=== PATIENT | male | born 1950 | race Hispanic/Latino ===

== ENCOUNTER 2020-01-21 13:23 | Inpatient (IN) | payer OTHER ==
[2020-01-21] MEDS ORDERED: Ringers Lactate 1,000 ML IV ONE (14:13)
[2020-01-21] MEDS ORDERED: SUCCINYLCHOLINE 20 MG/ML (10 ML) IV ONE (14:18)
[2020-01-21] MEDS ORDERED: MIDAZOLAM HCL 2 MG/2 ML INJ ONE (14:19)
[2020-01-21] MEDS ORDERED: propofoL 200 MG/20 ML VIAL IV ONE (14:20)
[2020-01-21] MEDS ORDERED: ROCURONIUM 50 MG/5 ML VIAL IV ONE (14:20)
[2020-01-21] MEDS ORDERED: FENTANYL CITR 100 MCG/2 ML ONE ×2 (14:20→14:59)
[2020-01-21] MEDS ORDERED: CEFOXITIN/SWI 1gm 1 GM/10 ML SYR ONE (14:20)
[2020-01-21] MEDS ORDERED: LIDOCAINE 1% MPF 5 ML VIAL ONE (14:20)
[2020-01-21] MEDS ORDERED: ONDANSETRON 4 MG/2 ML VIAL ONE (14:52)
[2020-01-21] MEDS ORDERED: KETOROLAC 30 MG/ML INJ ONE (14:52)
[2020-01-21] MEDS ORDERED: dexAMETHasone 10 MG/ML VIAL ONE (14:52)
[2020-01-21] MEDS ORDERED: NEOSTIGMINE 1 MG/ML -5 ML ONE (15:20)
[2020-01-21] MEDS ORDERED: GLYCOPYRROLATE 0.2 MG/ML SYR ONE ×2 (15:20)
--- NOTE | 2020-01-21 15:32 | P.OP ---
Automotive Product Engineer: Marco Antonio JAVIER Preoperative diagnosis: Acute Perforated Appendicitis Postoperative diagnosis: same Primary procedure: Lap Appy Anesthesia: General Estimated blood loss: min Specimen: Appy Findings: as above Complications: None Drain(s): BRENNAN drain Transferred to: Recovery Room Condition: Good
[2020-01-21] MEDS ORDERED: HYDROMORPHONE HCL 1 MG/ML INJ IV PRN (15:34)
[2020-01-21] MEDS ORDERED: ALBUTEROL 2.5 MG/3 ML NEB SOL ONE (15:37)
[2020-01-21] MEDS ORDERED: EPINEPHRINE INH 0.5 ML VIAL IH ONE (15:38)
[2020-01-21] MEDS: D5 0.45 NS 1,000 ML IV SCH (16:26)
[2020-01-21] MEDS: METRONIDAZOLE 500mg IVPB 500 MG/100 ML BAG IV SCH (16:27)
[2020-01-21 17:00] VITALS: BMI 26.6
[2020-01-21] MEDS: CEFOXITIN/SWI 1gm 1 GM/10 ML SYR IVP SCH (17:06)
[2020-01-21] MEDS ORDERED: CEFOXITIN SODIUM 1 GM/VIAL IVPB SCH (18:00)
--- NOTE | 2020-01-21 18:34 | PREOPCON ---
Date of Consultation: 01/21/2020 Chief Complaint: Abdominal pain. History Of Present Illness: The patient is a 69-year-old gentleman, who Saturday night started havin g some right-sided back pain going to the right lower quadrant and then to the lower pelvis region. He had been working on his muscular pain; however, his abdomen became distended and he became more an orexic, pain continued. He had no nausea, vomiting. No diarrhea. No constipation. No blood in his stools. Mild dysuria. No hematuria. No sore throat, runny nose, cough, headaches, or dizziness. No chest pain. He did have initially some subjective temperature, but is afebrile currently. He was seen in the office emergency room and I was contacted as the knows me from previous encounters for admission. The workup revealed a perforated appendicitis. Review of Systems: Otherwise unremarkable. Past Medical History: Kidney stones. Past Surgical History: Kidney stone surgery. Allergies: NO ALLERGIES. Social History: Denies smoking. Drinks occasionally. Family History: Negative for diabetes. Physical Examination: Vital Signs: Stable, currently afebrile. General: Awake, alert, oriented x3. Head and Neck: Cranial nerves 2 through 12 are grossly within normal limits. No neck masses. No JV D. Throat clear. Neck is supple. Chest: Clear. Heart: S1, S2. Abdomen: Soft, distended, hypoactive bowel sounds. Positive Rovsing sign. Positive right lower halima drant tenderness with rebound, rigidity, and guarding. Extremities: Adequately perfused. Nontender. Neuro: Nonfocal. Laboratory Data: CT scan and laboratory data reviewed. Essentially, the patient has leukocytosis wi th acute perforated appendicitis. Assessment: Acute perforated appendicitis. Plan: Admit, n.p.o., IV fluid, IV antibiotic, to the OR for laparoscopic appendectomy, possible open . The patient understands the risks, benefits, and alternatives and agrees to procedure. /MODL Voice ID: [id number] Report ID: [id number]
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
[2020-01-21] MEDS ORDERED: MELATONIN 5 MG TABLET PO ONE (21:01)
[2020-01-21] MEDS: HYDROCODONE/APAP 7.5/325 MG TAB PO PRN (21:59)
[2020-01-22] MEDS: CEFOXITIN/SWI 1gm 1 GM/10 ML SYR IVP SCH ×4 (00:12→17:15)
[2020-01-22] MEDS: METRONIDAZOLE 500mg IVPB 500 MG/100 ML BAG IV SCH ×3 (00:12→17:16)
--- NOTE | 2020-01-22 02:23 | OP ---
Date of Procedure: 01/21/2020 Surgeon: Cuba Perkins MD Emergency Veterinary Technician: YAYA iPerce. Preoperative Diagnosis: Acute perforated appendicitis. Postoperative Diagnosis: Acute perforated appendicitis. Procedure: Laparoscopic appendectomy. Estimated Blood Loss: Minimal. Specimen: Appendix. Findings: As above. Anesthesia: General. Complications: None. Drains: BRENNAN #10 flat. Disposition: The patient tolerated procedure in stable condition, taken to Recovery in good general condition. Procedure In Detail: The patient was brought to the OR and placed in supine position. General anest hesia was begun. The patient was prepped and draped in usual sterile fashion. Marcaine 0.5% was inf iltrated locally. A 15 blade was used to make a 1 cm supraumbilical midline incision. Subcutaneous tissue was divided. Fascia was identified and divided. A #1 Vicryl stay suture was placed. Periton eal cavity was entered with blunt dissection. A 12 mm trocar was placed into the peritoneal cavity u nder direct vision. Pneumoperitoneum was established. Then, two 5 mm trocars were placed, one in th e suprapubic region, one in the left lower quadrant. Laparoscopy revealed medial to the cecum and po steroinferior a necrotic appendix with pus, obvious perforations, very hard to define the mesoappendi x, but base of the appendix on the cecum was identified and then Endo-ROSE stapling device was utilize d to divide that. All the purulence was evacuated and irrigated thoroughly with saline and then the appendix was retrieved through the umbilicus via an EndoCatch bag. The right lower quadrant was exam ined again and there was a cavity where the appendix was and where the pus was. So, I opted to place a drain BRENNAN #10 flat into that area. The pelvis was cleaned. The right pericolic gutter was cleaned and then 3-0 nylon was used to secure the drain to the abdominal wall and then no evidence of bleedi ng or bowel injury was appreciated and all trocars were removed under direct vision. Stay sutures we re tied to each other across the fascial defect. Subcutaneous wounds were irrigated. Bleeding was c ontrolled with cautery. 3-0 chromic was used to approximate the subcutaneous tissue and demetri used to close the skin. Sterile dressing was applied. The patient was awakened and taken to Recovery in good general condition. /MODL Voice ID: [id number] Report ID: [id number]
[2020-01-22 04:00] LABS: Absolute Lymphocytes (CBC) 0.9 K/uL (0.7-4.9); Basophils % 0.1 % (0-1.3); Hematocrit 35.6 % (39.6-49.0); Lymphocytes % 7.9 % (15.3-44.8); MPV 8.5 fL (7.6-11.3); RBC Red Blood Cell Count 3.91 M/uL (4.33-5.43)
[2020-01-22 04:33] LABS: Magnesium 2.4 mg/dL (1.8-2.4); Phosphorus 2.9 mg/dL (2.5-4.9); Potassium 4.6 mmol/L (3.5-5.1)
[2020-01-22] MEDS: D5 0.45 NS 1,000 ML IV SCH ×2 (05:49→09:02)
[2020-01-22] MEDS: PANTOPRAZOLE 40MG TABLET PO SCH (05:49)
[2020-01-22 07:07] LABS: Thyroid Stimulating Hormone 0.625 uIU/mL (0.360-3.740)
[2020-01-22] MEDS: HYDROCODONE/APAP 7.5/325 MG TAB PO PRN (10:29)
[2020-01-22] MEDS: ONDANSETRON 4 MG/2 ML VIAL IV PRN ×2 (10:30→21:17)
--- NOTE | 2020-01-22 11:24 | P.PN ---
Subjective Date of Service: 01/22/20 Chief Complaint: Perforated appendicitis Subjective: Improving, Doing well Physical Examination - Vital Signs Temperature: 98.1 F Blood Pressure: 119/62 Pulse: 78 Respirations: 17 Pulse Ox (%): 97 - Physical Exam General: Alert, In no apparent distress, Oriented x3, Cooperative HEENT: Atraumatic Neck: Supple Respiratory: Clear to auscultation bilaterally, Normal air movement Cardiovascular: Normal pulses, Regular rate/rhythm Gastrointestinal: Other (Postop changes noted. Pain improved.) Neurological: Normal speech, Normal strength at 5/5 x4 extr, Normal tone, Normal affect - Studies Laboratory Data (last 24 hrs) 01/22/20 03:23: Sodium 134 L, Potassium 4.6, BUN 14, Creatinine 0.95, Glucose 192 H, Phosphorus 2.9, Magnesium 2.4 01/22/20 03:23: WBC 11.6 H, Hgb 12.4 L, Hct 35.6 L, Plt Count 230 Medications List Reviewed: Yes Assessment & Plan Discharge Plan: Home Plan to discharge in: 24 Hours Physician Review Additional Text: Assessment Perforated appendicitis status post laparoscopic appendectomy GERD Hyperglycemia secondary to pre diabetes Plan Perforated appendicitis status post laparoscopic appendectomy: Continue with surgery recommendations. Surgery to evaluate patient and advance diet. Encourage incentive spirometer. Encourage ambulation. Possible discharge in the next 24-48 hr. Will discuss further with surgery. GERD: Continue medication Hyperglycemia secondary to pre diabetes: A1c 6.1. Will teach about pre diabetes. Recommend recheck A1c in 3 months. Time Spent Managing Pts Care (In Minutes): 55
--- NOTE | 2020-01-22 14:36 | PN ---
Date of Progress Note: 01/22/2020 Subjective: The patient is awake alert, no complaint. Vitals are stable. He is afebrile. BRENNAN put o ut 50 cc of serosanguineous fluid last night. Urine output is adequate. White count is 11.6 with a left shift. Chemistry reviewed. Abdomen is soft, nondistended, nontender. Assessment: Status post lap appy for perforated appendicitis. Plan: Continue IV antibiotics. Encourage ambulation. Advance diet. Incentive spirometry and DVT p rophylaxis. /MODL Voice ID: [id number] Report ID: [id number]
[2020-01-22] MEDS ORDERED: FAMOTIDINE 20 MG/2 ML VIAL IV ONE (23:00)
[2020-01-23] MEDS: CEFOXITIN/SWI 1gm 1 GM/10 ML SYR IVP SCH ×4 (00:09→18:51)
[2020-01-23] MEDS: METRONIDAZOLE 500mg IVPB 500 MG/100 ML BAG IV SCH ×3 (00:21→18:11)
[2020-01-23 04:49] LABS: Absolute Lymphocytes (CBC) 1.5 K/uL (0.7-4.9); Basophils % 0.4 % (0-1.3); Hematocrit 38.9 % (39.6-49.0); Lymphocytes % 11.8 % (15.3-44.8); MPV 8.5 fL (7.6-11.3); RBC Red Blood Cell Count 4.24 M/uL (4.33-5.43)
[2020-01-23] MEDS: PANTOPRAZOLE 40MG TABLET PO SCH (05:58)
[2020-01-23] MEDS ORDERED: D5 0.45 NS 1,000 ML IV SCH (07:37)
[2020-01-23] MEDS: D5 0.9 NS 1,000 ML IV SCH (09:09)
--- NOTE | 2020-01-23 09:12 | RAD REPORT ---
EXAM DESCRIPTION: RAD - Abdomen W Erect - 01/23/2020 8:57 am CLINICAL HISTORY: S/P surgery, suspect Ileus Pain COMPARISON: No comparisons FINDINGS: Several distended small bowel loops are present in the central abdomen with mild gas diste ntion of the colon also seen. Surgical drain is noted in the lower abdomen. Small amount of free air seen. Overall, findings favor adynamic ileus.
[2020-01-23] MEDS: ONDANSETRON 4 MG/2 ML VIAL IV PRN ×2 (11:07→22:01)
--- NOTE | 2020-01-23 12:37 | PN ---
Date of Progress Note: 01/23/2020 Subjective: Patient had nausea and vomiting. Complaining of abdominal distention. He is passing ga s. He had an abdominal x-ray done, which showed ileus. No obstruction. Objective: Vital Signs: Stable. Afebrile. Abdomen: Distended. Hypoactive bowel sounds. Laboratory Data: Shows white count to be 12.5 with a slight left shift. Chemistry reviewed. Assessment: Status post laparoscopic appendectomy for perforated appendicitis. Now with postop ileu s. Recommendation: Continue the patient n.p.o. Encourage ambulation. Continue IV antibiotics. When h is bowel function improved, and his ileus improves, we will begin diet. /MODL Voice ID: [id number] Report ID: [id number]
--- NOTE | 2020-01-23 14:50 | P.PN ---
Subjective Date of Service: 01/23/20 Chief Complaint: Perforated appendicitis Subjective: Other (Patient had nausea and vomiting last night. Patient is passing gas but distention noted.) Physical Examination - Vital Signs Temperature: 99 F Blood Pressure: 134/68 Pulse: 79 Respirations: 16 Pulse Ox (%): 91 - Physical Exam General: Alert, In no apparent distress, Oriented x3, Cooperative HEENT: Atraumatic Neck: Supple Respiratory: Clear to auscultation bilaterally, Normal air movement Cardiovascular: Normal pulses, Regular rate/rhythm Gastrointestinal: Hypoactive, Other (Postop changes noted. Pain slightly improved.), Distended (Some abdominal distention noted) Neurological: Normal speech, Normal strength at 5/5 x4 extr, Normal tone, Normal affect - Studies Laboratory Data (last 24 hrs) 01/23/20 04:25: WBC 12.5 H, Hgb 13.4 L, Hct 38.9 L, Plt Count 306 D Medications List Reviewed: Yes Assessment & Plan Discharge Plan: Home Plan to discharge in: 48 Hours Physician Review Additional Text: Assessment Perforated appendicitis status post laparoscopic appendectomy now with postop ileus GERD Hyperglycemia secondary to pre diabetes Plan Perforated appendicitis status post laparoscopic appendectomy now with postop ileus: Abdominal x-ray shows ileus. Case discussed with surgery. Will keep t he patient NPO. Encourage ambulation. Encourage incentive spirometer. Will monitor closely. Anticipate improvement over the next 48 hr. Will continue with surgery recommendation. Will provide IV fluids during this time. Patient remains on IV antibiotic therapy. GERD: Continue medication Hyperglycemia secondary to pre diabetes: A1c 6.1. Will teach about pre diabetes. Recommend recheck A1c in 3 months. Time Spent Managing Pts Care (In Minutes): 55
[2020-01-23] MEDS: ENOXAPARIN 40 MG/0.4 ML SQ SCH (20:45)
[2020-01-23] MEDS: HYDROCODONE/APAP 7.5/325 MG TAB PO PRN (22:42)
[2020-01-24] MEDS: CEFOXITIN/SWI 1gm 1 GM/10 ML SYR IVP SCH ×4 (00:27→17:46)
[2020-01-24] MEDS: METRONIDAZOLE 500mg IVPB 500 MG/100 ML BAG IV SCH ×3 (00:27→17:46)
[2020-01-24] MEDS: D5 0.9 NS 1,000 ML IV SCH ×2 (02:00→11:40)
[2020-01-24 04:50] LABS: Absolute Lymphocytes (CBC) 1.5 K/uL (0.7-4.9); Basophils % 0.5 % (0-1.3); Hematocrit 37.3 % (39.6-49.0); Lymphocytes % 12.5 % (15.3-44.8); MPV 8.4 fL (7.6-11.3); RBC Red Blood Cell Count 4.07 M/uL (4.33-5.43)
[2020-01-24 04:57] LABS: BUN Blood Urea Nitrogen 17 mg/dL (7-18); Bicarbonate 26 mmol/L (21-32); Glucose Level 146 mg/dL (74-106); Magnesium 2.2 mg/dL (1.8-2.4); Potassium 4.1 mmol/L (3.5-5.1); Sodium Level 137 mmol/L (136-145)
[2020-01-24] MEDS: PANTOPRAZOLE 40MG TABLET PO SCH (06:01)
[2020-01-24] MEDS: ENOXAPARIN 40 MG/0.4 ML SQ SCH (08:22)
--- NOTE | 2020-01-24 10:47 | RAD REPORT ---
EXAM DESCRIPTION: RAD - Abdomen W Erect - 01/24/2020 10:40 am CLINICAL HISTORY: F/U Ileus Pain COMPARISON: Abdomen W Erect dated 01/23/2020 FINDINGS: Mild improvement in mildly distended large and small bowel loops with air seen since the c omparative study. No pathologic calcifications seen. Drainage catheter is in place. IMPRESSION: Mild improvement in adynamic ileus pattern since comparative study.
--- NOTE | 2020-01-24 12:10 | PN ---
Date of Progress Note: 01/24/2020 Subjective: The patient has no nausea or vomiting. However, he has not had a bowel movement and is passing minimal flatus. Still feels distended. Objective: Vital signs: Stable. He is afebrile. He is drained throughout 150 cc, last shift. Abdomen: Slightly distended with hypoactive bowel sounds. Dressing is clean, dry, intact and BRENNAN ramonita inage is straw-colored fluid. Laboratory Data: His white count is 11.9 with a slight left shift. Chemistry reviewed, unremarkable . Assessment: Status post laparoscopic appendectomy for perforated appendicitis. Plan: We will await the results of the x-ray today. We may start him on sips of clear liquids later today. Based on the x-rays, there is improvement. Clinically, he is slowly progressing. He does s till have a prolonged ileus. Encouraged ambulation, incentive spirometry, and DVT prophylaxis. /MODL Voice ID: [id number] Report ID: [id number]
--- NOTE | 2020-01-24 12:27 | P.PN ---
Subjective Date of Service: 01/24/20 Chief Complaint: Perforated appendicitis Subjective: No new changes, No C/O voiced (- ambulating hallway -states no nausea -states still pasing gas but no BM yet) Physical Examination - Vital Signs Temperature: 98.0 F Blood Pressure: 129/68 Pulse: 80 Respirations: 16 Pulse Ox (%): 94 - Physical Exam General: Alert, In no apparent distress, Oriented x3 HEENT: Atraumatic, Normocephalic, PERRLA Neck: Supple, 2+ carotid pulse no bruit, JVD not distended Respiratory: Clear to auscultation bilaterally, Normal air movement Cardiovascular: No edema, Normal pulses, Regular rate/rhythm Gastrointestinal: Normal bowel sounds (slight increased RLQ, but otherwise even all other quadrants ), Soft and benign, No tenderness Integumentary: No rashes, No breakdown, No significant lesion Neurological: Normal gait, Normal speech, Normal strength at 5/5 x4 extr - Studies Laboratory Data (last 24 hrs) 01/24/20 04:21: Sodium 137, Potassium 4.1, BUN 17, Creatinine 0.78, Glucose 146 H, Magnesium 2.2 01/24/20 04:21: WBC 11.9 H, Hgb 12.9 L, Hct 37.3 L, Plt Count 317 Medications List Reviewed: Yes Assessment & Plan - Problems (Diagnosis) (1) Postoperative ileus Current Visit: Yes Status: Acute (2) Status post appendectomy Current Visit: Yes Status: Acute Physician Review Additional Text: Assessment Perforated appendicitis status post laparoscopic appendectomy now with postop ileus GERD Hyperglycemia secondary to pre diabetes Plan Postop ileus: Clinically improving Follow abdominal x-ray Will discuss with surgery team for possible start of trial of clear liquid today Continue ambulation -continue gentle IV fluid Continue IV antibiotics for now GERD: Continue medication Hyperglycemia secondary to pre diabetes: A1c 6.1. likely pre diabetes. Recommend recheck A1c in 3 months. Patient abdominal x-rays reviewed, improving ileus obstructive pattern. I agree with start of clear liquids
[2020-01-24] MEDS ORDERED: ENOXAPARIN 40 MG/0.4 ML SQ SCH (21:00)
[2020-01-25] MEDS: METRONIDAZOLE 500mg IVPB 500 MG/100 ML BAG IV SCH ×2 (00:07→09:03)
[2020-01-25] MEDS: CEFOXITIN/SWI 1gm 1 GM/10 ML SYR IVP SCH ×2 (00:07→05:25)
[2020-01-25] MEDS: D5 0.9 NS 1,000 ML IV SCH ×2 (01:00→05:26)
[2020-01-25 05:08] LABS: Absolute Lymphocytes (CBC) 1.9 K/uL (0.7-4.9); Basophils % 0.5 % (0-1.3); Hematocrit 35.7 % (39.6-49.0); Lymphocytes % 14.1 % (15.3-44.8); MPV 7.7 fL (7.6-11.3); RBC Red Blood Cell Count 3.93 M/uL (4.33-5.43)
[2020-01-25 05:20] LABS: BUN Blood Urea Nitrogen 9 mg/dL (7-18); Bicarbonate 25 mmol/L (21-32); Glucose Level 140 mg/dL (74-106); Magnesium 2.2 mg/dL (1.8-2.4); Potassium 4.1 mmol/L (3.5-5.1); Sodium Level 137 mmol/L (136-145)
[2020-01-25] MEDS: PANTOPRAZOLE 40MG TABLET PO SCH (05:26)
[2020-01-25 08:38] VITALS: O2SAT 91
--- NOTE | 2020-01-25 10:21 | P.PN ---
Subjective Date of Service: 01/25/20 Chief Complaint: Perforated appendicitis Subjective: No new changes, Tolerating diet (-tolerating clear liquid - having bowels movts now) Physical Examination - Vital Signs Temperature: 97.6 F Blood Pressure: 142/74 Pulse: 78 Respirations: 16 Pulse Ox (%): 94 - Physical Exam General: Alert, In no apparent distress, Oriented x3 HEENT: Atraumatic, Normocephalic, PERRLA Neck: Supple, 2+ carotid pulse no bruit, JVD not distended Respiratory: Clear to auscultation bilaterally, Normal air movement Cardiovascular: Normal pulses, Regular rate/rhythm, Normal S1 S2 - Studies Laboratory Data (last 24 hrs) 01/25/20 04:58: Sodium 137, Potassium 4.1, BUN 9, Creatinine 0.69, Glucose 140 H, Magnesium 2.2 01/25/20 04:58: WBC 13.1 H, Hgb 12.4 L, Hct 35.7 L, Plt Count 330 Medications List Reviewed: Yes Assessment & Plan - Problems (Diagnosis) (1) Postoperative ileus Current Visit: Yes Status: Acute (2) Status post appendectomy Current Visit: Yes Status: Acute Physician Review: Patient Assessed, Agree with Above Assessment and Plan Physician Review Additional Text: Assessment Perforated appendicitis status post laparoscopic appendectomy now with postop ileus GERD Hyperglycemia secondary to pre diabetes Plan Postop ileus: improved -moving bowels now - advance diet as tolerated today -will dc IVF now Continue IV antibiotics for now - can switch to po later today GERD: Continue medication Hyperglycemia secondary to pre diabetes: A1c 6.1. likely pre diabetes. Recommend recheck A1c in 3 months.
[2020-01-25 12:13] VITALS: BP 143/72; TEMP 97.3
--- NOTE | 2020-01-25 12:42 | PN ---
Subjective: Patient is awake, alert, has several bowel movements. No abdominal pain. Bowels are st able. Afebrile. He is hungry. Laboratory Data: Reviewed. White count is 13.1 with a slight left shift. H and H are stable. I's an O's reveal straw-colored fluid in the BRENNAN drain and 22 cc last shift. Objective: ABDOMEN: Soft, nondistended, nontender. Positive bowel sounds. Assessment: Status post laparoscopic appendectomy for perforated appendicitis. Plan: We will advance his diet to GI soft, decreases IV fluid when tolerating diet and hopefully dis charge in 24 hours. Encourage ambulation and incentive spirometry. DVT prophylaxis. /MODL Voice ID: [id number] Report ID: [id number]
[2020-01-25 13:02] LABS: C.diff Antigen/Toxin Ag neg : Tox neg (NEG : NEG)
== END 2020-01-25 13:21 | disposition home or self-care (01) | DRG 339 ==
LOC: 4TH 13:30 → 2ND 01-24 19:28
PROVIDERS: ADMIT Surgery; ATTEND Surgery
PROC: 0W9G40Z Drainage of Peritoneal Cavity with Drainage Device, Percutaneous Endoscopic Approach (ICD-10-PCS; 2020-01-21)
PROC: 0DTJ4ZZ Resection of Appendix, Percutaneous Endoscopic Approach (ICD-10-PCS; principal; 2020-01-21 14:15)
DX: K35.32 Acute appendicitis with perforation, localized peritonitis, and gangrene, without abscess (principal); K56.7 Ileus, unspecified; K21.9 Gastro-esophageal reflux disease without esophagitis; R73.9 Hyperglycemia, unspecified; R73.03 Prediabetes; Z79.899 Other long term (current) drug therapy
CPT/HCPCS: 36415; 74019; 80048; 83036; 83735; 84100; 84439; 84443; 85025; 87324; 87449; 88304; J0330; J1100; J1170; J1650; J2250; J2405; J2704; J2710; J3010; J7042; J7120; J7799